=== PATIENT | female | born 1955 | race Asian ===

== ENCOUNTER 2019-01-26 16:38 | Outpatient (CLI) | payer BC ==
--- NOTE | 2019-01-26 17:28 | RAD ---
Cervical spine 4 views: 01/26/2019 COMPARISON: None available HISTORY: Neck pain FINDINGS: The open-mouth odontoid view demonstrates a normal appearance. There is multilevel mid cerv ical spine facet and uncovertebral osteophyte formation bilaterally, most prominent at C4-5 and C5-6. There is disc space narrowing with degenerative endplate change as well as anterior and posterior ost eophyte formation at the C5-6 and to a lesser degree, C4-5 levels. There is posterior osteophyte at C5-6. There is mild anterolisthesis at C4-5 measuring 2-3 mm and there is mild retrolisthesis at C5-C 6 measuring approximately 2-3 mm. IMPRESSION: Degenerative change within the cervical spine as detailed above.
== END 2019-01-26 16:39 | disposition home or self-care (01) ==
LOC: SCSRAD 16:38
PROVIDERS: ATTEND Family Medicine
DX: M54.2 Cervicalgia (principal); M47.812 Spondylosis without myelopathy or radiculopathy, cervical region
CPT/HCPCS: 72040

== ENCOUNTER 2021-10-23 17:36 | Outpatient (CLI) | payer MEDICARE, BC | END 2021-10-23 17:37 | disposition home or self-care (01) | LOC: SCSRAD 17:36 | PROVIDERS: ATTEND Family Medicine | DX: R05.8 Other specified cough (principal) | CPT/HCPCS: 71046; U0003; U0005 ==

== ENCOUNTER 2024-11-15 08:52 | Outpatient (CLI) | payer MEDICARE, BC | END 2024-11-15 08:53 | disposition home or self-care (01) | LOC: SCSBT 08:52 | PROVIDERS: ATTEND Internal Medicine Endocrinology, Diabetes & Metabolism | DX: M85.89 Other specified disorders of bone density and structure, multiple sites (principal) | CPT/HCPCS: 77080 ==